=== PATIENT | male | born 1970 | race Caucasian/White ===

== ENCOUNTER → 2016-12-03 | Outpatient (CLI) | payer BC ==
[~2016-12-03] VITALS: Ht 185.4 cm; Wt 110.0 kg
[~2016-12-03] MED LIST: ALPR0.5T99; AMBI10TA PO; BENZOCAINE 20% ORAL SPR 60 ML CAN OROPHARYNG ONE; BUPR-175 PO; CYCL-36 PO; IBUP-232 PO; LIDOCAINE HCL 2% JELLY 5 ML SYRINGE TOPICAL ONE; LORT5TAB PO; PAXI20TA26; PRIL40CA PO; TELM20
[2016-12-03 07:07] VITALS: BP 134/74; PULSE 64; RESP 18; TEMP 98.6; O2SAT 98
== END ==
LOC: HEND 06:47
PROVIDERS: ATTEND Internal Medicine Gastroenterology
DX: K44.9 Diaphragmatic hernia without obstruction or gangrene (principal)
CPT/HCPCS: 91010

== ENCOUNTER → 2017-02-12 | Outpatient (CLI) | payer BC ==
[~2017-02-12] MED LIST changes: +ALPR.5 PO; +AMLO10TA2 PO; -BENZOCAINE 20% ORAL SPR 60 ML CAN OROPHARYNG ONE; +CIAL20TA PO; +DICY10CA12 PO; +FENO145T2 PO; +FLUT1SPR5 EACH NARE; -LIDOCAINE HCL 2% JELLY 5 ML SYRINGE TOPICAL ONE; +MOBI15TA PO; +PANT40TA3 PO; +TELM1TAB56 PO
[2017-02-12 14:09] LABS: AUTOMATED NEUTROPHIL # 3.2 TH/MM3 (1.8-7.7); BASOPHIL % 0.5 % (0.0-2.0); EOSINOPHIL # 0.1 TH/MM3 (0-0.4); EOSINOPHIL % 1.3 % (0.0-4.0); HEMATOCRIT 36.3 % (39.0-51.0); HEMO FLAGS DIFF FINAL; LYMPH % 26.4 % (9.0-44.0); LYMPHOCYTE # 1.4 TH/MM3 (1.0-4.8); MEAN CELL VOLUME 81.7 FL (80.0-100.0); MEAN CORPUSCULAR HEMOGLOBIN 27.3 PG (27.0-34.0); MEAN CORPUSCULAR HGB CONC 33.4 % (32.0-36.0); MONO % 11.4 % (0.0-8.0); NEUT % 60.4 % (16.0-70.0); PLATELET COUNT 206 TH/MM3 (150-450); RED BLOOD COUNT 4.44 MIL/MM3 (4.50-5.90); RED CELL DISTRIBUTION WIDTH 13.7 % (11.6-17.2); WHITE BLOOD COUNT 5.3 TH/MM3 (4.0-11.0)
[2017-02-12 14:34] LABS: BICARBONATE 27.6 MEQ/L (21.0-32.0)
--- NOTE | 2017-02-12 14:48 | RADRPT ---
EXAM DATE/TIME: 02/12/2017 14:35 [facility] COMPARISON: No previous studies available for comparison. INDICATIONS : Evaluate for pneumonia, pneumothorax, or communicable disease. Pre op for LINX and hernia repair. MEDICAL HISTORY : None. SURGICAL HISTORY : None. ENCOUNTER: Initial ACUITY: 1 day PAIN SCORE: 0/10 LOCATION: Bilateral chest FINDINGS: PA and lateral views of the chest demonstrate minimal linear opacity at the lung bases most character istic of scarring or atelectasis. No focal consolidation or significant effusion. Heart size normal. No pneumothorax. CONCLUSION: 1. No active disease. Linear scarring or atelectasis at the bases. Ian Britton MD on February 12, 2017 at 14:45 Board Certified Radiologist. This report was verified electronically.
--- NOTE | 2017-02-13 21:01 | EKG ---
Date Performed: 02/12/2017 Time Performed: 14:04:24 PTAGE: 47 years EKG: SINUS BRADYCARDIA BORDERLINE ECG NO PREVIOUS TRACING DOCTOR: Edenilson Cadet Interpretating Date/Time 02/13/2017 20:52:50
== END ==
LOC: CPRE 13:46
PROVIDERS: ATTEND Surgery Trauma Surgery
DX: Z01.810 Encounter for preprocedural cardiovascular examination (principal); Z01.811 Encounter for preprocedural respiratory examination; Z01.812 Encounter for preprocedural laboratory examination; K21.0 Gastro-esophageal reflux disease with esophagitis; K44.9 Diaphragmatic hernia without obstruction or gangrene; K42.9 Umbilical hernia without obstruction or gangrene; R94.31 Abnormal electrocardiogram [ECG] [EKG]
CPT/HCPCS: 36415; 71020; 80048; 85025; 93005

== ENCOUNTER → 2017-02-18 | Day surgery (SDC) | payer BC ==
[~2017-02-18] VITALS: Ht 185.4 cm; Wt 102.9 kg
[~2017-02-18] MED LIST changes: +*morphine SULFATE 8 MG/ML PERIprocedure ONLY ONE; +ACETAMINOPHEN 1000 MG/100 ML 100 ML IV ONE; +ACETAMINOPHEN 1000 MG/100 ML VIAL IV ONE; +ACETAMINOPHEN/HYDROcodone 325 MG/5 MG TAB PO PRN; -ALPR0.5T99; +BUPIVACAINE/EPINEPHRINE 0.25% 50 ML VIAL ONE; -BUPR-175 PO; +CHLORHEXIDINE GLUCONATE 2 % 1 PACK (2 CLOTHS) TOPICAL PRN; -CYCL-36 PO; +DEXAMETHASONE SOD PHOS 4 MG/ML VIAL ONE; +FAMOTIDINE 20 MG/2 ML VIAL ONE; -IBUP-232 PO; +INSULIN HUMAN REGULAR 1,000 UNITS/10 ML VIAL SQ PRN; +LACTATED RINGER'S 1000 ML INJ 1,000 ML IV SCH; +LACTATED RINGER'S 1000 ML IV PRN; +LIDOCAINE HCL 1% 50 ML VIAL ONE; +LIDOCAINE HCL 1% PF 5 ML AMPULE OTHER ONE; -LORT5TAB PO; +METOPROLOL TARTRATE 25 MG TAB PO PRN; +MIDAZOLAM HCL 2 MG/2 ML VIAL ONE; +MORPHINE SULFATE 4 MG/ML INJ IV PUSH PRN; +ONDANSETRON HCL 4 MG/2 ML VIAL IV PUSH ONE; -PAXI20TA26; +PHENYLEPH/NS 1000 MCG/10 ML SYR IV ONE; +POVIDONE IODINE 5% (ANTISEPSIS KIT) 4 APPLICATIONS EACH NARE PRN; -PRIL40CA PO; +PROPOFOL 200 MG/20 ML AMP IV ONE; +Post-op Orders (for Pharmacy) MISC XX ONE; +ROCURONIUM INJ 50 MG/5 ML SYRINGE IV PUSH ONE; +SODIUM CHLORID 0.9% 500 ML IV PRN; +SODIUM CHLORIDE 0.9% FLUSH 10 ML FLUSH IV FLUSH PRN; +SODIUM CHLORIDE 0.9% FLUSH 10 ML FLUSH IV FLUSH SCH; -TELM20; +ceFAZolin 2 GM PREMIX 50 ML IV SCH
--- NOTE | 2017-02-18 11:06 | PD.OP ---
Operative Report Date of Surgery: Feb 18, 2017 Preoperative Diagnosis: hiatal hernia, GERD Incidental [facility] Postoperative Diagnosis: same Procedure: lap repair hiatal hernia with magnetic sphincter augmentation of LES UH repair Anesthesia: general Surgeon: Neville Nur Inspecting Machine Adjuster(s): Dr Jake Verdin Operation and Findings: second preschool teacher's assistant Chantal Cruz MS3 Small hiatal hernia repair primarily with suture, size 15 Linx placed. EBL minimal. [facility] repair primary with suture. Neville Nur MD Feb 18, 2017 11:06
--- NOTE | 2017-02-18 12:44 | MP ---
cc: OSCAR MADRID M.D., DAVID G. M.D. DATE OF SURGERY 02/18/2017 PREOPERATIVE DIAGNOSES 1. Hiatal hernia. 2. Gastroesophageal reflux disease. 3. Incidentally discovered umbilical hernia. POSTOPERATIVE DIAGNOSES 1. Hiatal hernia. 2. Gastroesophageal reflux disease. 3. Incidentally discovered umbilical hernia. PROCEDURES Laparoscopic repair of hiatal hernia with magnetic sphincter augmentation of the lower esophageal sphincter. ADDITIONAL PROCEDURE Umbilical hernia repair. SURGEON Dr. Neville Nur BAKERY ASSISTANT Dr. Jake Verdin SECOND BAKERY ASSISTANT Judi Cruz, MS3 ANESTHESIA General. INDICATIONS This is a very pleasant 47-year-old gentleman who was sent to me in consultation by Dr. Madrid for gastroesophageal reflux disease. He has been on proton pump inhibitors for over 10 years, having to increase the dosage over time. He is concerned about long-term side effects associated with proton pump inhibitors and desirous of anti-reflux surgery. He underwent preoperative workup with upper endoscopy which demonstrated esophagitis. He had a pH probe study which demonstrated elevated DeMeester scores. He had a preoperative manometry which had demonstrated no evidence of manometric dysmotility. He was felt to be an excellent candidate for laparoscopic repair of hiatal hernia with magnetic sphincter augmentation with the LINX device. INTRAOPERATIVE FINDINGS 1. Small hiatal hernia, repaired primarily with suture. Size 15 LINX placed. 2. Estimated blood loss was minimal. 3. Umbilical hernia was repaired primarily with suture. DESCRIPTION OF PROCEDURE IN DETAIL The patient was identified as Floyd Damon, taken to the operating room and placed in supine position. Sequential compression devices were placed on bilateral lower extremities. Following induction of adequate general endotracheal anesthesia, the patient's abdomen was prepped and draped in usual standard fashion with Betadine. A time-out procedure was performed. Following completion of the time-out procedure to everyone's satisfaction within the room, 0.25% Marcaine with epinephrine was injected at each incision site. A supraumbilical small transverse incision was carried out with a scalpel and dissection continued posteriorly to the midline supraumbilical fascia. This was incised in vertical fashion with the scalpel and entry into peritoneal cavity facilitated with the surgeon's finger. The [employer] balloon Cherelle trocar was placed in the peritoneal cavity, its balloon inflated with CO2 insufflation until a level of 15 mmHg ensued. The patient was placed in a reverse Trendelenburg position. Using the 30-degree lens, the four additional 5-mm trocars were placed in the peritoneal cavity under direct laparoscopic view after incision of the skin with a scalpel. The Martha-Flex liver retractor was placed beneath the left lateral lobe of the liver, held in position with the robot arm. Attention was turned to dissection of the diaphragmatic crura. The gastrohepatic ligament was taken down using the harmonic scalpel after identification of the right side diaphragmatic crura. Peritoneal attachments to the crura and across the anterior diaphragm at the phrenoesophageal ligament were taken down. The peritoneal reflection of the crura were taken down and the posterior vagus nerve was identified in the posterior aspect of the esophagus. A window was scrubbed created between the posterior vagus nerve and the esophagus and a Gravette drain was placed through this window after the left side attachments had been taken down with the harmonic scalpel. The hiatus and distal esophagus were then dissected to our satisfaction, ensuring that no excess tissue was present at the proposed site of the LINX implantation. The posterior crura were assessed and a crural closure was felt to be necessary. The crura were then approximated with two interrupted 0 Ethibond sutures placed using the suture operations assistant device. The esophageal dissection was assessed and it was felt to be satisfactory and in a comfortable position within the abdominal cavity without tension and the laparoscopic sizing device was used in the standard technique confirming that the sizing was performed with no orogastric tube other instruments in the esophagus prior to sizing. A size 15 LINX device was felt to be the most appropriate size and the size 15 LINX was placed into the peritoneal cavity, placed through the previously placed retroesophageal window between the posterior vagus nerve and the esophagus. The bracelet was then completed ensuring that one window was present in clasped beads as per the standard protocol. Confirmatory tug was then performed and we were satisfied with the approximation. Sutures from the LINX device were then cut and removed entirely as was the Raghavendra drain. A thorough inspection was performed. We were very satisfied with the crural closure and position of the device. Photographs were taken of the completed repair. There was no sign of injury to the esophagus or stomach or surrounding organs. The Martha-Flex liver retractor was then removed and the ports were drawn under direct vision. Pneumoperitoneum was decompressed through the supraumbilical port. The supraumbilical fascial incision was closed with interrupted inverted 0 Vicryl sutures. The skin incisions from of 5-mm port sites were approximated with 4-0 Monocryl subcuticular sutures. Attention was then turned to repair of the umbilical hernia. Through the same supraumbilical incision the umbilical skin was dissected off the herniated preperitoneal fatty tissue and the fascia was cleared for about 1 cm around the umbilical defect which was about 1 cm in size. It was approximated nicely with three interrupted inverted 0 Prolene sutures. The skin incision in the supraumbilical position was then approximated with 4-0 Monocryl subcuticular sutures. Dressings were applied with Mastisol and 1/2-inch brown Steri-Strips. The patient tolerated the procedure without apparent complication. Sponge, needle, instrument counts correct at end of the case. The patient tolerated the procedure well. MD LIZZY Medeiros/WILLAM /11:18 AM /12:24 PM
[2017-02-18 13:00] VITALS: BP 119/72; PULSE 64; RESP 18; TEMP 97.8; O2SAT 95
== END | disposition home or self-care (01) ==
LOC: HSDC 06:49
PROVIDERS: ATTEND Surgery Trauma Surgery
DX: K44.9 Diaphragmatic hernia without obstruction or gangrene (principal); K21.9 Gastro-esophageal reflux disease without esophagitis; K42.9 Umbilical hernia without obstruction or gangrene
CPT/HCPCS: 00790; 43281; 49652; J0131; J0690; J1100; J2250; J2270; J2370; J2405; J3010; J7120

== ENCOUNTER 2017-05-08 17:39 | Emergency (ER) | payer BC ==
[~2017-05-08] VITALS: Ht 185.4 cm; Wt 105.0 kg
[~2017-05-08 17:39] MED LIST changes: -*morphine SULFATE 8 MG/ML PERIprocedure ONLY ONE; -ACETAMINOPHEN 1000 MG/100 ML 100 ML IV ONE; -ACETAMINOPHEN 1000 MG/100 ML VIAL IV ONE; -ACETAMINOPHEN/HYDROcodone 325 MG/5 MG TAB PO PRN; -BUPIVACAINE/EPINEPHRINE 0.25% 50 ML VIAL ONE; -CHLORHEXIDINE GLUCONATE 2 % 1 PACK (2 CLOTHS) TOPICAL PRN; -DEXAMETHASONE SOD PHOS 4 MG/ML VIAL ONE; -FAMOTIDINE 20 MG/2 ML VIAL ONE; -INSULIN HUMAN REGULAR 1,000 UNITS/10 ML VIAL SQ PRN; -LACTATED RINGER'S 1000 ML INJ 1,000 ML IV SCH; -LACTATED RINGER'S 1000 ML IV PRN; -LIDOCAINE HCL 1% 50 ML VIAL ONE; -LIDOCAINE HCL 1% PF 5 ML AMPULE OTHER ONE; -METOPROLOL TARTRATE 25 MG TAB PO PRN; -MIDAZOLAM HCL 2 MG/2 ML VIAL ONE; -MORPHINE SULFATE 4 MG/ML INJ IV PUSH PRN; -ONDANSETRON HCL 4 MG/2 ML VIAL IV PUSH ONE; -PHENYLEPH/NS 1000 MCG/10 ML SYR IV ONE; -POVIDONE IODINE 5% (ANTISEPSIS KIT) 4 APPLICATIONS EACH NARE PRN; -PROPOFOL 200 MG/20 ML AMP IV ONE; -Post-op Orders (for Pharmacy) MISC XX ONE; -ROCURONIUM INJ 50 MG/5 ML SYRINGE IV PUSH ONE; -SODIUM CHLORID 0.9% 500 ML IV PRN; -SODIUM CHLORIDE 0.9% FLUSH 10 ML FLUSH IV FLUSH PRN; -SODIUM CHLORIDE 0.9% FLUSH 10 ML FLUSH IV FLUSH SCH; -ceFAZolin 2 GM PREMIX 50 ML IV SCH
[2017-05-08 17:48] VITALS: BP 164/78; PULSE 64; RESP 16; TEMP 97.9; O2SAT 98
--- NOTE | 2017-05-08 17:56 | PD ---
HPI Chief Complaint: Headache Time Seen by Provider: 17:56 Travel History International Travel<30 days: No Contact w/Intl Traveler<30days: No Traveled to known affect area: No History of Present Illness HPI 47-year-old male came to the emergency room with history of headache that has been on and off for past 2 weeks but worse since last night. Patient says that the headache has been the worst of his life. He is awake and answering questions. He said that about 2 hours ago he started getting sudden onset numbness on the right side of his face that lasted for 10 minutes. Patient had history of migraines about 10-15 years ago but since then has never had headaches up until 2 weeks ago. He also says that he bumped his head couple times prior to the onset of the headache. Currently he appears uncomfortable. Vital signs are stable. No history of nausea vomiting PFSH Past Medical History Narrative Medical List of his past medical, surgical, social and family history is reviewed from the nursing note. Anxiety: Yes Depression: Yes Cancer: No Cardiovascular Problems: No Diabetes: No Diminished Hearing: No Endocrine: No Genitourinary: No Hepatitis: No (ELEVATED ENZYMES) Hiatal Hernia: Yes Hypertension: Yes Immune Disorder: No Musculoskeletal: Yes (R SHOULDER PAIN, BILATERAL ARM PAIN, NECK PAIN) Neurologic: No Psychiatric: Yes Reproductive: No Respiratory: Yes (SLEEP APNEA , USES A MACHINE) Thyroid Disease: No Past Surgical History Abdominal Surgery: Yes (APPY) AICD: No Appendectomy: Yes Body Medical Devices: SCREWS IN R SHOULDER Joint Replacement: No Pacemaker: No Social History Alcohol Use: No Tobacco Use: Yes (5 CIGS/ DAY) Substance Use: No Allergies-Medications (Allergen,Severity, Reaction): Coded Allergies: Sulfa (Sulfonamide Antibiotics) (Unverified Allergy, Severe, 05/08/17) atorvastatin (Verified Adverse Reaction, Severe, Cough, 05/08/17) Comments List of his allergies reviewed from the nursing note. Reported Meds & Prescriptions Reported Meds & Active Scripts Active Gzlowwyqml-Yermjomxyvfnw-Bkvqnywe 50-325-40 Mg Tab 1 Tab PO Q4H PRN Do not exceed 6 tablets/day. Reported Fenofibrate 145 Mg Tab 145 Mg PO DAILY Cialis (Tadalafil) 20 Mg Tab 20 Mg PO DAILY PRN Do not exceed 1 dose/day. Amlodipine (Amlodipine Besylate) 10 Mg Tab 10 Mg PO DAILY Ambien (Zolpidem Tartrate) 10 Mg Tab 10 Mg PO HS PRN Micardis (Telmisartan) 80 Mg Tab 80 Mg PO DAILY Xanax (Alprazolam) 0.5 Mg Tab 0.5 Mg PO Q8H PRN Narrative Medication List of his home medications reviewed from the nursing note. Review of Systems Except as stated in HPI: all other systems reviewed are Neg Neurologic: Positive: Headache Physical Exam Narrative GENERAL: Awake, alert, significant distress, anxious SKIN: Focused skin assessment warm/dry. HEAD: Atraumatic. Normocephalic. EYES: Pupils equal and round. No scleral icterus. No injection or drainage. ENT: No nasal bleeding or discharge. Mucous membranes pink and moist. NECK: Trachea midline. No JVD. CARDIOVASCULAR: Regular rate and rhythm. No murmur appreciated. RESPIRATORY: No accessory muscle use. Clear to auscultation. Breath sounds equal bilaterally. GASTROINTESTINAL: Abdomen soft, non-tender, nondistended. Hepatic and splenic margins not palpable. MUSCULOSKELETAL: No obvious deformities. No clubbing. No cyanosis. No edema. NEUROLOGICAL: Awake and alert. No obvious cranial nerve deficits. Motor grossly within normal limits. Normal speech. PSYCHIATRIC: Appropriate mood and affect; insight and judgment normal. Data Data Last Documented VS Orders Orders Complete Blood Count With Diff (05/08/17 18:07) Basic Metabolic Panel (Bmp) (05/08/17 18:07) Ct Brain W/O Iv Contrast(Rout) (05/08/17 18:07) Ecg Monitoring (05/08/17 18:07) Iv Access Insert/Monitor (05/08/17 18:07) Oximetry (05/08/17 18:07) Sodium Chloride 0.9% Flush (Ns Flush) (05/08/17 18:15) Prochlorperazine Inj (Compazine Inj) (05/08/17 18:15) Sodium Chlor 0.9% 1000 Ml Inj (Ns 1000 M (05/08/17 18:07) Ed Discharge Order (05/08/17 19:03) Labs Laboratory Tests Test 05/08/17 18:27 White Blood Count 5.5 TH/MM3 Red Blood Count 4.74 MIL/MM3 Hemoglobin 12.8 GM/DL Hematocrit 39.6 % Mean Corpuscular Volume 83.6 FL Mean Corpuscular Hemoglobin 27.0 PG Mean Corpuscular Hemoglobin Concent 32.3 % Red Cell Distribution Width 12.6 % Platelet Count 237 TH/MM3 Mean Platelet Volume 8.9 FL Neutrophils (%) (Auto) 62.7 % Lymphocytes (%) (Auto) 26.0 % Monocytes (%) (Auto) 9.1 % Eosinophils (%) (Auto) 1.5 % Basophils (%) (Auto) 0.7 % Neutrophils # (Auto) 3.5 TH/MM3 Lymphocytes # (Auto) 1.4 TH/MM3 Monocytes # (Auto) 0.5 TH/MM3 Eosinophils # (Auto) 0.1 TH/MM3 Basophils # (Auto) 0.0 TH/MM3 CBC Comment DIFF FINAL Differential Comment Blood Urea Nitrogen 17 MG/DL Creatinine 1.10 MG/DL Random Glucose 98 MG/DL Calcium Level 8.5 MG/DL Sodium Level 138 MEQ/L Potassium Level 3.9 MEQ/L Chloride Level 104 MEQ/L Carbon Dioxide Level 25.4 MEQ/L Anion Gap 9 MEQ/L Estimat Glomerular Filtration Rate 71 ML/MIN MDM Medical Decision Making Medical Screen Exam Complete: Yes Emergency Medical Condition: Yes Medical Record Reviewed: Yes Differential Diagnosis Status migrainous, intracranial bleed Narrative Course 6:[address] scan of his head is negative for any bleed. Patient was given IV Compazine and IV fluid bolus. CBC is within normal limits. Chemistry is pending. Patient says that his headache is getting better. When he first came in it was 10 out of 10 and now it 6 out of 10. I offered him Toradol but patient did not want anymore medications. He will be discharged home if the test results are within normal limits. Procedures EKG Prior to Arrival: No Diagnosis Primary Impression: Status migrainosus Referrals: Primary Care Physician 2 days Additional Instructions: Stay away from alcohol/wine, cigarettes, chocolate and she is since these are triggers for migraine. Coffee or caffeinated beverages makes migraine headache better. Take the medication as per the prescription direction. Return to the ER if condition worsens or any other new concerns. Otherwise follow-up with your primary care. Med/Other Pt SpecificInfo: Prescription(s) given Scripts Ksngsoococ-Iaykmrcspeavs-Gdoliort (Vzswcjhwct-Augiihhyqrheo-Fpitjrkn) 50-325-40 Mg Tab 1 TAB PO Q4H Y for HEADACHE, #20 TAB 0 Refills Do not exceed 6 tablets/day. Prov: Antonieta Peterson MD 05/08/17 Disposition: 01 DISCHARGE HOME Condition: Stable Antonieta Peterson MD May 08, 2017 17:56
[2017-05-08] MEDS ORDERED: SODIUM CHLOR 0.9% 1000 ML INJ 1,000 ML IV ONE (18:07)
[2017-05-08 18:15] VITALS: RESP 16; O2SAT 98
[2017-05-08] MEDS ORDERED: PROCHLORPERAZINE INJ 10 MG/2 ML VIAL IVP ONE (18:15)
[2017-05-08] MEDS ORDERED: SODIUM CHLORIDE 0.9% FLUSH 10 ML FLUSH IVF PRN (18:15)
--- NOTE | 2017-05-08 18:28 | RADRPT ---
EXAM DATE/TIME: 05/08/2017 18:09 [facility] COMPARISON: No previous studies available for comparison. INDICATIONS : Cephalgia, momentary right side facial numbness. RADIATION DOSE: 61.89 CTDIvol (mGy) MEDICAL HISTORY : Hypertension. SURGICAL HISTORY : None. ENCOUNTER: Initial ACUITY: 1 day PAIN SCALE: 6/10 LOCATION: cranial TECHNIQUE: Multiple contiguous axial images were obtained of the head. Using automated exposure control and adj ustment of the mA and/or kV according to patient size, radiation dose was kept as low as reasonably a chievable to obtain optimal diagnostic quality images. DICOM format image data is available electro nically for review and comparison. FINDINGS: CEREBRUM: The ventricles are normal for age. No evidence of midline shift, mass lesion, hemorrhage or acute in farction. No extra-axial fluid collections are seen. POSTERIOR FOSSA: The cerebellum and brainstem are intact. The 4th ventricle is midline. The cerebellopontine angle i s unremarkable. EXTRACRANIAL: The visualized portion of the orbits is intact. SKULL: The calvaria is intact. No evidence of skull fracture. CONCLUSION: Normal examination for a patient of this age. Ian Britton MD on May 08, 2017 at 18:25 Board Certified Radiologist. This report was verified electronically.
[2017-05-08 18:48] LABS: AUTOMATED NEUTROPHIL # 3.5 TH/MM3 (1.8-7.7); BASOPHIL % 0.7 % (0.0-2.0); EOSINOPHIL # 0.1 TH/MM3 (0-0.4); EOSINOPHIL % 1.5 % (0.0-4.0); HEMATOCRIT 39.6 % (39.0-51.0); HEMO FLAGS DIFF FINAL; LYMPHOCYTE # 1.4 TH/MM3 (1.0-4.8); MEAN CELL VOLUME 83.6 FL (80.0-100.0); MEAN CORPUSCULAR HGB CONC 32.3 % (32.0-36.0); MONO % 9.1 % (0.0-8.0); NEUT % 62.7 % (16.0-70.0); PLATELET COUNT 237 TH/MM3 (150-450); RED BLOOD COUNT 4.74 MIL/MM3 (4.50-5.90); RED CELL DISTRIBUTION WIDTH 12.6 % (11.6-17.2); WHITE BLOOD COUNT 5.5 TH/MM3 (4.0-11.0)
[2017-05-08 18:55] LABS: POTASSIUM 3.9 MEQ/L (3.5-5.1)
[2017-05-08 18:58] LABS: BICARBONATE 25.4 MEQ/L (21.0-32.0)
[2017-05-08] MEDS ORDERED: BUTATAB6 PO (18:58)
[2017-05-08 19:29] VITALS: BP 144/78
== END 2017-05-08 19:32 | disposition home or self-care (01) ==
LOC: PHED 17:39
DX: G43.901 Migraine, unspecified, not intractable, with status migrainosus (principal); I10 Essential (primary) hypertension; F17.210 Nicotine dependence, cigarettes, uncomplicated
CPT/HCPCS: 70450; 80048; 85025; 96361; 96374; 99285; J0780; J7030